=== PATIENT | male | born 1965 | race African-American/Black ===

== ENCOUNTER 2016-05-28 16:16 | Emergency (ER) | payer OTHER ==
[2015-11-18 14:27] VITALS: Ht 188 cm; Wt 99.8 kg
[~2016-05-28] VITALS: Ht 188 cm; Wt 99.8 kg
[2016-05-28 16:16] VITALS: BP 138/69; PULSE 77; RESP 15; TEMP 96.7; O2SAT 99
[~2016-05-28 16:16] MED LIST: ESCI10TA54 PO; FOLI-43 PO; GEMF600T3 PO; OMEG1CAP48 PO; PANCREAZE 16,81 EACH PO; SEVE800T8 PO; VIT1TABL44 PO
--- NOTE | 2016-05-28 16:16 | NUR ---
Placed in room 5 . Placed on electronic device monitor, blood pressure machine and pulse oximeter. To gown for exam. Side rails up. Report given to Luz PISANO.
--- NOTE | 2016-05-28 16:20 | NUR ---
pt. to ER by EMS AAOx4 for near syncope states that he was at the [employer] sitting on the chair an hour ago felt cold and sweaty nd dizzy, emt arrived and blood sugar was 87, denies SOB, Denies Chest pain, states he feels fine at this time doesn't think he needs to stay, on quality assurance monitor final, vitals stable
--- NOTE | 2016-05-28 16:43 | NUR ---
pt. communicates with MD and myself about refusing treatment, states he feels fine now and would like to go home, agrees to sign AMA
--- NOTE | 2016-05-28 16:43 | NUR ---
pt. refuses blood draw
--- NOTE | 2016-05-28 16:52 | NUR ---
Patient does not wish to proceed with medical care recommended by dr. cuello. Patient given information related to possible complications, up to and including , which could occur as a result of leaving hospital at this time. Patient verbalizes understanding of risks involved leaving against medical advice. Patient has signed AMA form.
== END 2016-05-28 16:52 | disposition left against medical advice (07) ==
LOC: SED 16:16
DX: R55 Syncope and collapse (principal); I10 Essential (primary) hypertension; E11.29 Type 2 diabetes mellitus with other diabetic kidney complication; N28.9 Disorder of kidney and ureter, unspecified
CPT/HCPCS: 99283

== ENCOUNTER 2017-05-19 17:12 | Inpatient (IN) | payer BC, OTHER ==
[~2017-05-19] VITALS: Ht 188 cm; Wt 89.8 kg
[2017-05-19 17:12] VITALS: BP_SYST 133
--- NOTE | 2017-05-19 17:15 | NUR ---
Pt report received from NORRIS Morrison. Pt c/o mid abdominal pain with N/V x 4 days. Pt actively vomiting upon arrival to ER bed 01. Dr. Baez made aware.
--- NOTE | 2017-05-19 17:15 | NUR ---
TRIAGED AND BROUGHT IMMEDIATELY BACK TO BED #1 VIA WHEELCHAIR. REPORT GIVEN TO JESUS
--- NOTE | 2017-05-19 17:35 | NUR ---
ER at bedside examining patient.
[2017-05-19] MEDS ORDERED: ONDANSETRON HCL 4 MG/2 ML VIAL IVP ONE (17:45)
--- NOTE | 2017-05-19 17:50 | NUR ---
# 20 gauge angiocath placed to LAC. Use of asceptic technique. Opsite placed over site. Blood return noted. Blood for lab drawn from site. Flushed with 10 cc of normal saline. No evidence of infiltration noted. Patient tolerated well.
[2017-05-19 18:25] LABS: BASOPHILS % (AUTO) 0.4 % (0.0-2.0); EOSINOPHILS # (AUTO) 0.1 K/uL (0.0-0.4); EOSINOPHILS % (AUTO) 0.8 % (0.0-4.0); HEMATOCRIT 50.8 % (36-54); HEMOGLOBIN 16.4 g/dL (14.0-18.0); LYMPHOCYTES # (AUTO) 1.8 K/uL (1.0-5.5); LYMPHOCYTES % (AUTO) 17.7 % (20.5-51.5); MEAN CORPUSCULAR HEMOGLOBIN 32 pg (27-31); MEAN CORPUSCULAR HGB CONC 32 % (32-36); MEAN CORPUSCULAR VOLUME 98 fL (79.0-98.0); MONOCYTES # (AUTO) 0.9 K/uL (0.0-1.0); MONOCYTES % (AUTO) 8.9 % (1.7-9.3); NEUTROPHILS # (AUTO) 7.4 K/uL (1.8-7.7); NEUTROPHILS % (AUTO) 72.2 % (40.0-70.0); PLATELET COUNT (AUTO) 393 K/uL (130-430); RED BLOOD CELL COUNT(AUTO) 5.16 MIL/uL (4.2-6.2); RED CELL DISTRIBUTION WIDTH 11.9 % (9.0-15.0); WHITE BLOOD COUNT (AUTO) 10.2 K/uL (4.8-10.8)
[2017-05-19 18:35] LABS: INR 1.1 (0.80-1.20); PROTHROMBIN TIME 10.9 SECS (9.5-12.5)
[2017-05-19 18:56] LABS: ANION GAP 11 (5-15); CALCIUM 12.2 mg/dL (8.4-11.0); CHLORIDE 96 mmol/L (98-107); GLUCOSE 153 mg/dL (70-99); POTASSIUM 3.4 mmol/L (3.5-5.1); SODIUM SERUM 137 mmol/L (136-145); UREA NITROGEN, BLOOD 23 mg/dL (8-21)
[2017-05-19 18:57] LABS: ALANINE AMINOTRANSFERASE 26 U/L (12-78); ALBUMIN 3.7 g/dL (3.4-4.8); AMYLASE 46 U/L (0-100); ASPARTATE AMINOTRANSFERASE 24 U/L (10-37); CREATININE 1.67 mg/dL (0.55-1.30); GFR AFRICAN AMERICAN 56 mL/min (>90); LIPASE 94 U/L (73-393); TOTAL BILIRUBIN 0.5 mg/dL (0.0-1.0)
[2017-05-19 19:03] LABS: ACETONE, SERUM TRACE (NEGATIVE)
[2017-05-19] MEDS ORDERED: MORPHINE 4 MG/ML INJ. SYRINGE IVP ONE (19:15)
[2017-05-19 20:05] VITALS: BP_SYST 159
--- NOTE | 2017-05-19 20:10 | NUR ---
Patient will be admitted to care of Dr. Cruz. Admitted to Tele unit. Will go to room 117B. Belongings list completed. Summary report printed. Bedside report given to receiving RN.
--- NOTE | 2017-05-19 20:20 | NUR ---
OPENING NOTE RECEIVED PT ENDORSEMENT FROM ED NURSE. PT CAME FROM HOME C/O ABD PAINX 1 WEEK, [facility] REPORTS PT HAS LOST +15LBS X 2 WEEKS. PT REPORTS NOT EATING WELL. PT IS AOX4. AMBULATORY. ED NURSE REPORTS ADMINISTERING ZOFRAN 4MG AND MORPHINE 4 MG X1 HR AGO. PT REPORTS NO PAIN RELIEF. PT REPORTS 10/[address] IBANEZ PAGED FOR PAIN MEDICATION ORDERS. BP AND HR ELEVATED. NO FEVER. O2 SAT 97% ON ROOM AIR. IV ON LEFT AC 20GAUGE. IV DRY AND INTACT. SAFETY MEASURES IN PLACE, BED WHEELS LOCKED, BED IN LOWEST POSITION, CALL LIGHT WITHIN REACH, NOTIFIED PT TO USE CALL LIGHT OR TO CALL FOR ASSISTANCE, PT VERBALIZED UNDERSTANDING. WILL CONTINUE TO MONITOR.
--- NOTE | 2017-05-19 20:32 | NUR ---
paged paged for Dr Cruz, dialed . s/w Vandana.
[2017-05-19] MEDS ORDERED: TEMAZEPAM 15 MG CAPSULE PO PRN (20:45)
[2017-05-19] MEDS ORDERED: cloNIDine HCL 0.1 MG TABLET PO PRN (20:45)
[2017-05-19] MEDS ORDERED: ACETAMINOPHEN 325 MG TABLET PO PRN (20:45)
[2017-05-19] MEDS ORDERED: DEXTROSE 50% JECT 50 ML DISP.SYRIN IVP PRN (20:45)
[2017-05-19] MEDS ORDERED: MAG-AL HYDROX/SIMETH 30 ML UDC PO PRN (20:45)
[2017-05-19] MEDS ORDERED: PANTOPRAZOLE GRANULES PACKET 40 MG GT SCH (21:00)
[2017-05-19] MEDS: MORPHINE 4 MG/ML INJ. SYRINGE IVP PRN (21:14)
--- NOTE | 2017-05-19 21:14 | NUR ---
RN ROUNDS PT IS AOX4. AT BEDSIDE. PT REPORTS 10/10 PAIN. PT'S IV PATENT AND DRY. MORPHINE IVP GIVEN ORDERED FOR PAIN. SCHEDULED MEDICATIONS ADMINISTERED ORDERED, PT TOLERATED WELL. WILL MONITOR MEDICATION EFFECTIVENESS. PT'S BS CHECKED AT THIS TIME, BS 137, NO COVERAGE NEEDED A THIS TIME. SAFETY MEASURES IN PLACE BED WHEELS LOCKED, BED IN LOWEST POSITION, CALL LIGHT WITHIN REACH, SIDE RAILS UP X 2. BEDSIDE TABLE WITHIN REACH. NO FURTHER NEEDS AT THIS TIME. WILL CONTINUE TO MONITOR PT.
[2017-05-19] MEDS: METOCLOPRAMIDE HCL 10 MG/2 ML VIAL IVP PRN (21:20)
[2017-05-19] MEDS: KCL 20 mEq in 0.45% NS 1000 mL 1,000 ML IV SCH (21:20)
--- NOTE | 2017-05-19 21:21 | NUR ---
Consult Called for Krista Houston MD Reason for consultation: Pancreatic Mass Person who was notified: Hellen Ordered by Dr. Cruz
[2017-05-19] MEDS: PANTOPRAZOLE SODIUM 40 MG/VIAL (PROTONIX) IVP SCH (21:23)
[2017-05-19] MEDS: GEMFIBROZIL 600 MG TABLET (LOPID) PO SCH (21:23)
[2017-05-19] MEDS: OMEGA-3/DHA/EPA/FISH OIL 1 GM CAPSULE PO SCH (21:24)
[2017-05-19] MEDS: HYDROcodone/ACETAMIN 10-325 MG TAB PO PRN (22:15)
--- NOTE | 2017-05-19 22:15 | NUR ---
RN ROUNDS PT IS AOX4. PT IS IN POSITION OF COMFORT IN BED. IS AT BEDSIDE. PT'S IV PATENT AND DRY. PT C/O PAIN, 09/04, NORCO PO ADMINISTERED ORDERED FOR PAIN, PT TOLERATED WELL, WILL MONITOR MEDICATIONS EFFECTIVENESS. SAFETY MEASURES IN PLACE BED WHEELS LOCKED, BED IN LOWEST POSITION, CALL LIGHT WITHIN REACH, SIDE RAILS UP X 2. BEDSIDE TABLE WITHIN REACH. NO FURTHER NEEDS AT THIS TIME. WILL CONTINUE TO MONITOR PT.
--- NOTE | 2017-05-19 23:11 | NUR ---
RN ROUNDS Patient resting quietly in bed, abd pain tolerable at this time. Ice packs given, patient states he feels warm. No temperature noted. IVF infusing. Safety measures in place, bed alarm on, call light within reach, will monitor.
[2017-05-20 00:07] VITALS: BP_SYST 131
--- NOTE | 2017-05-20 00:29 | NUR ---
RN ROUNDS PT RESTING WITH EYES CLOSED. RESPIRATIONS EVEN AND UNLABORED. SAFETY MEASURES IN PLACE BED WHEELS LOCKED, BED IN LOWEST POSITION, CALL LIGHT WITHIN REACH, SIDE RAILS UP X 2. BEDSIDE TABLE WITHIN REACH. NO FURTHER NEEDS AT THIS TIME. WILL CONTINUE TO MONITOR PT.
[2017-05-20] MEDS: KCL 20 mEq in 0.45% NS 1000 mL 1,000 ML IV SCH (02:21)
[2017-05-20] MEDS: ONDANSETRON HCL 4 MG/2 ML VIAL IVP PRN ×2 (02:31→08:36)
[2017-05-20] MEDS: MORPHINE 4 MG/ML INJ. SYRINGE IVP PRN ×5 (02:31→18:22)
--- NOTE | 2017-05-20 02:31 | NUR ---
RN ROUNDS PT WAS RESTING WITH EYES CLOSED. RESPIRATIONS EVEN AND UNLABORED. NO S/S OF SOB/DISTRESS NOTED. IV PATENT AND DRY. IVF'S CHANGED, IVF INFUSING WELL. PT TOLERATING WELL. PT REPORTS 8/10 PAIN. MORPHINE IVP ADMINISTERED ORDERED FOR PAIN. PT TOLERATED WELL. WILL ASSESS MEDICATION EFFECTIVENESS. SAFETY MEASURES IN PLACE BED WHEELS LOCKED, BED IN LOWEST POSITION, CALL LIGHT WITHIN REACH, SIDE RAILS UP X 2. BEDSIDE TABLE WITHIN REACH. NO FURTHER NEEDS AT THIS TIME. WILL CONTINUE TO MONITOR PT.
[2017-05-20] MEDS: HYDROcodone/ACETAMIN 10-325 MG TAB PO PRN ×4 (03:11→21:37)
--- NOTE | 2017-05-20 03:11 | NUR ---
RN ROUNDS PT RESTING WITH EYES OPEN. RESPIRATIONS EVEN AND UNLABORED. PT REQUESTED ICE PACKS, AND ICE CHIPS. ICE PACKS AND ICE CHIPS WERE PROVIDED REQUESTED. PT REPORTING 6/10 PAIN. NORCO PO ADMINISTERED ORDERED. PT TOLERATED WELL. WILL ASSESS MEDICATION EFFECTIVENESS.IV PATENT AND DRY. IVF INFUSING WELL. SAFETY MEASURES IN PLACE BED WHEELS LOCKED, BED IN LOWEST POSITION, CALL LIGHT WITHIN REACH, SIDE RAILS UP X 2. BEDSIDE TABLE WITHIN REACH. NO FURTHER NEEDS AT THIS TIME. WILL CONTINUE TO MONITOR PT.
--- NOTE | 2017-05-20 04:11 | NUR ---
RN ROUNDS PT RESTING WITH EYES OPEN. RESPIRATIONS EVEN AND UNLABORED. NO SOB/DISTRESS NOTED AT THIS TIME. REASSESSED PT'S PAIN. PT REPORTS 08/04. MEDICATION EFFECTIVE. WILL CONTINUE TO MONITOR. SAFETY MEASURES IN PLACE BED WHEELS LOCKED, BED IN LOWEST POSITION, CALL LIGHT WITHIN REACH, SIDE RAILS UP X 2. BEDSIDE TABLE WITHIN REACH. NO FURTHER NEEDS AT THIS TIME. WILL CONTINUE TO MONITOR PT.
[2017-05-20] MEDS: METOCLOPRAMIDE HCL 10 MG/2 ML VIAL IVP PRN ×2 (06:16→12:17)
--- NOTE | 2017-05-20 06:22 | NUR ---
CLOSING NOTE WILL ENDORSE PT TO HOME THERAPY CLINICIAN. PT RESTING WITH EYES OPEN. RESPIRATIONS EVEN AND UNLABORED. NO SOB/ DISTRESS NOTED AT THIS TIME. MORPHINE AND REGLAN GIVEN IVP ORDERED. PT TOLERATED WELL. PT C/O OF 7/10 PAIN. REASSESSED PAIN PT REPORTING 5/10 PAIN. MEDICATION EFFECTIVE. BLOOD SUGAR CHECKED, BS 419. INSULIN COVERAGE ADMINISTERED [address] IBANEZ PER PROTOCOL. DR. IBANEZ NOTIFIED OF BS 419, NO ORDERS AT THIS TIME. WILL CONTINUE TO MONITOR PT. NO FURTHER NEEDS AT THIS TIME. SAFETY MEASURES IN PLACE BED WHEELS LOCKED, BED IN LOWEST POSITION, CALL LIGHT WITHIN REACH, SIDE RAILS UP X 2. BEDSIDE TABLE WITHIN REACH. NO FURTHER NEEDS AT THIS TIME. WILL CONTINUE TO MONITOR PT.
[2017-05-20] MEDS: INSULIN REGULAR, HUMAN 100 UNITS/ML, 10 ML VIAL (novoLIN R) SUBCUT PRN ×3 (06:35→17:12)
[2017-05-20 06:39] LABS: BASOPHILS % (AUTO) 0.6 % (0.0-2.0); EOSINOPHILS % (AUTO) 0.5 % (0.0-4.0); LYMPHOCYTES # (AUTO) 1.1 K/uL (1.0-5.5); LYMPHOCYTES % (AUTO) 15.5 % (20.5-51.5); MEAN CORPUSCULAR HEMOGLOBIN 33 pg (27-31); MEAN CORPUSCULAR HGB CONC 33 % (32-36); MEAN CORPUSCULAR VOLUME 99 fL (79.0-98.0); MONOCYTES # (AUTO) 0.8 K/uL (0.0-1.0); MONOCYTES % (AUTO) 11.2 % (1.7-9.3); NEUTROPHILS # (AUTO) 5.4 K/uL (1.8-7.7); NEUTROPHILS % (AUTO) 72.2 % (40.0-70.0); PLATELET COUNT (AUTO) 203 K/uL (130-430); RED BLOOD CELL COUNT(AUTO) 3.84 MIL/uL (4.2-6.2); RED CELL DISTRIBUTION WIDTH 11.9 % (9.0-15.0); WHITE BLOOD COUNT (AUTO) 7.3 K/uL (4.8-10.8)
[2017-05-20 07:24] LABS: ALBUMIN 2.5 g/dL (3.4-4.8); CALCIUM 9.5 mg/dL (8.4-11.0); CREATININE 1.97 mg/dL (0.55-1.30); PHOSPHORUS 4.2 mg/dL (2.7-4.5); POTASSIUM 4.5 mmol/L (3.5-5.1); TOTAL BILIRUBIN 0.5 mg/dL (0.0-1.0)
[2017-05-20 07:35] LABS: HEMOGLOBIN 12.6 g/dL (14.0-18.0)
[2017-05-20 08:20] VITALS: BP_SYST 143
[2017-05-20] MEDS: SEVELAMER HCL 800 MG TABLET PO SCH ×3 (08:20→17:08)
[2017-05-20] MEDS: GEMFIBROZIL 600 MG TABLET (LOPID) PO SCH ×2 (08:20→20:55)
[2017-05-20] MEDS: CITALOPRAM HYDROBROMIDE 20 MG TABLET PO SCH (08:20)
[2017-05-20] MEDS: NEPHROVITE, (FOLIC ACID/VITAMIN B COMP W-C 1 TAB) PO SCH (08:20)
[2017-05-20] MEDS: OMEGA-3/DHA/EPA/FISH OIL 1 GM CAPSULE PO SCH ×2 (08:20→20:54)
[2017-05-20] MEDS: PANTOPRAZOLE SODIUM 40 MG/VIAL (PROTONIX) IVP SCH ×2 (08:20→20:54)
[2017-05-20] MEDS: FOLIC ACID 1 MG TABLET PO SCH (08:20)
--- NOTE | 2017-05-20 08:20 | NUR ---
OPENING NOTE LATE ENTRY DUE TO PT CARE: REPORT IS RECEIVED FROM OIL RAG WASHER NURSE AND CARE IS ENDORSED TO MYSELF. PT IS RECEIVED AWAKE, ALERT, AND ORIENTED X4. RECHECKED FINGER STICK BECAUSE OIL RAG WASHER NURSE INSULIN FOR BLOOD SUGAR OF 419 AND BLOOD SUGAR RETURNED AT 394. MORNING MEDICATIONS WERE GIVEN AND TOLERATED WELL. GAVE PRN NORCO FOR PAIN OF 6 OUT OF 10 IN ABDOMINAL AREA AND PRN ZOFRAN FOR NAUSEA. WHITE BOARD UPDATED WITH CURRENT INFORMATION WELL PLAN FOR TODAY. BED IS AT LOWEST POSITION, CALL LIGHT WITHIN REACH, TWO SIDE RAILS UP, BED ALARM IS ON. WILL CONTINUE TO MONITOR.
[2017-05-20] MEDS: LIPASE/PROTEASE/AMYLASE 1 CAP PO SCH ×3 (08:36→17:09)
[2017-05-20] MEDS: [UNRECOGNIZED DRUG - OTHER] PO SCH ×3 (09:00→20:54)
[2017-05-20] MEDS: PROTEASE PO SCH ×3 (09:00→20:54)
[2017-05-20] MEDS: LIPASE PO SCH ×3 (09:00→20:54)
[2017-05-20] MEDS: AMYLASE PO SCH ×3 (09:00→20:54)
--- NOTE | 2017-05-20 10:02 | NUR ---
ROUNDS PT IS SLEEPING BUT IS EASILY AWAKEN. NO SIGNS OR SYMPTOMS OF DISTRESS OR SOB NOTED. PT STATES PAIN IS INCREASING TO 8 OUT OF 10 WILL GIVEN PRN PAIN MEDICATION. CURRENT NEEDS ARE MET. BED IS AT LOWEST POSITION, CALL LIGHT WITHIN REACH, TWO SIDE RAILS UP, BED ALARM IS ON. WILL CONTINUE TO MONITOR.
--- NOTE | 2017-05-20 10:20 | NUR ---
GAVE NPH 10 UNITS ORDERED
[2017-05-20] MEDS: NACL 0.9% 1,000 ML IV SCH ×3 (10:27→23:20)
[2017-05-20] MEDS: INSULIN NPH 100 UNITS/ML 10 ML VIAL SUBCUT SCH (10:30)
--- NOTE | 2017-05-20 12:10 | NUR ---
ROUNDS PT IS AWAKE AND ALERT. NO SIGNS OR SYMPTOMS OF DISTRESS OR SOB NOTED. GAVE 10 UNIT OF REGULAR PER SLIDING SCALE. GAVE PO MEDICATIONS AND PT TOLERATED IT WELL. CURRENT NEEDS ARE MET. BED IS AT LOWEST POSITION, CALL LIGHT WITHIN REACH, TWO SIDE RAILS UP, BED ALARM IS ON. WILL CONTINUE TO MONITOR.
--- NOTE | 2017-05-20 12:17 | NUR ---
GAVE PRN REGLAN FOR NAUSEA
--- NOTE | 2017-05-20 13:02 | NUR ---
DR. MARCELLE HARRIS
[2017-05-20 13:36] VITALS: BP_SYST 114
--- NOTE | 2017-05-20 14:26 | NUR ---
Dietitian Recommendations *Recommend continuing clear liquid no red per MD. *Recommend advance diet when medically appropriate. ([facility] Fat) Please see Nutritional Assessment for details. EDITH, RD
--- NOTE | 2017-05-20 14:55 | NUR ---
ROUNDS PT IS AWAKE AND ALERT. NO SIGNS OR SYMPTOMS OF DISTRESS OR SOB NOTED. GAVE PRN MORPHINE 4MG IVP FOR PAIN IN ABDOMEN AREA OF 7 OUT OF 10. ADVISED OF INCREASE RISK FOR FALLS AND THE NEED TO USE CALL LIGHT IF HE WANTS TO GET UP. CURRENT NEEDS ARE MET. BED IS AT LOWEST POSITION, CALL LIGHT WITHIN REACH, TWO SIDE RAILS UP, BED ALARM IS ON. WILL CONTINUE TO MONITOR.
--- NOTE | 2017-05-20 16:28 | NUR ---
ROUNDS PT IS AWAKE AND ALERT. NO SIGNS OR SYMPTOMS OF DISTRESS OR SOB NOTED. PT STATES PAIN LEVEL IS CURRENTLY TOLERABLE AT A 3 OUT OF 10. GAVE 10 UNIT OF NPH ORDERED. CURRENT NEEDS ARE MET. BED IS AT LOWEST POSITION, CALL LIGHT WITHIN REACH, TWO SIDE RAILS UP, BED ALARM IS ON. WILL CONTINUE TO MONITOR.
[2017-05-20 16:30] VITALS: BP_SYST 111
[2017-05-20] MEDS ORDERED: INSULIN NPH 100 UNITS/ML 10 ML VIAL SUBCUT SCH (17:00)
--- NOTE | 2017-05-20 18:25 | NUR ---
CLOSING NOTE PT IS SLEEPING BUT IS EASILY AWAKEN. NO SIGNS OR SYMPTOMS OF DISTRESS OR SOB NOTED. GAVE PRN MORPHINE FOR PAIN OF 8 OUT OF 10 IN THE ABDOMEN AREA. CURRENT NEEDS ARE MET. BED IS AT LOWEST POSITION, CALL LIGHT WITHIN REACH, TWO SIDE RAILS UP, BED ALARM IS ON. WILL CONTINUE TO MONITOR. Addendum: 05/20/17 at 1830 by Sonia Dunlap RN WILL CONTINUE TO MONITOR UNTIL CARE AND REPORT IS GIVEN TO CUSTOMER CARE AGENT NURSE.
[2017-05-20 19:05] VITALS: BP_SYST 130
--- NOTE | 2017-05-20 19:05 | NUR ---
OPENING NOTES Received SBAR report from [facility] nurse Sonia. Not in any apparent distress 130/72 77 18 96% room air 97.4 and currently complains of 7/10 abdominal pain. Patient is awake/alert/oriented with his family bedside. Noted IV to Left AC 20G running NS @ 150ml/hr. Verified patency with good blood return/flush. SCD's not applied, re-applied and discussed benefits of their function. Introduced myself, updated whiteboard and oriented patient to room. Bed to lowest position, bed alarm activated, and 2 upper side rails bilat raised. Will continue to monitor patient.
--- NOTE | 2017-05-20 21:02 | NUR ---
LOW BLOOD GLUCOSE Patient's blood glucose levels 67; patient asymptomatic; gave apple juice. 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 Cruz to advise Will continue to monitor patient.
--- NOTE | 2017-05-20 21:37 | NUR ---
PAIN MEDICATION Patient complains of 6/10 abdominal pain. Administered [place] 10mg/325mg as ordered by physician for moderate pain. Will continue to monitor patient.
--- NOTE | 2017-05-20 21:49 | NUR ---
PAGED DR IBANEZ FOR ORDERS SPOKE WITH SURYA
--- NOTE | 2017-05-20 22:05 | NUR ---
s/w Dr. Cruz, informed him of patients blood glucose levels/trend. He would like to DC NPH insulin administration during the evening. No other changes to medication regimen. Order noted/carried out.
--- NOTE | 2017-05-20 23:36 | NUR ---
ROUNDS Patient is currently sleeping, but easily arousable to light stimulation. Equal rise and fall of chest with non-labored respirations of 16/min. Call light within his reach, bed to lowest position, bed alarm activated, 2 upper side rails up bilateral. Will continue to monitor patient.
[2017-05-21 00:11] VITALS: BP_SYST 135; BP_SYST 155
[2017-05-21] MEDS: MORPHINE 4 MG/ML INJ. SYRINGE IVP PRN ×3 (01:56→23:58)
--- NOTE | 2017-05-21 02:20 | NUR ---
ROUNDS Patient is currently awake/alert/oriented, watching television. No acute distress noted, and respirations are non-labored; 16/min. Call light within his reach, bed to lowest position, bed alarm activated, 2 upper side rails up bilateral. Will continue to monitor patient.
--- NOTE | 2017-05-21 04:31 | NUR ---
ROUNDS Patient is currently sleeping, easily arousable, skin is warm to touch. Equal rise and fall of chest, and respirations are non-labored. Will continue to monitor patient.
[2017-05-21] MEDS: NACL 0.9% 1,000 ML IV SCH ×3 (06:06→20:32)
[2017-05-21] MEDS: HYDROcodone/ACETAMIN 10-325 MG TAB PO PRN ×3 (06:25→18:55)
--- NOTE | 2017-05-21 06:25 | NUR ---
PAIN MEDICATION Patient complains of 6/10 abdominal pain. Administered [place] 10mg/325mg as ordered by physician for moderate pain. Will continue to monitor patient.
[2017-05-21] MEDS: INSULIN REGULAR, HUMAN 100 UNITS/ML, 10 ML VIAL (novoLIN R) SUBCUT PRN ×2 (06:30→13:25)
[2017-05-21] MEDS: INSULIN NPH 100 UNITS/ML 10 ML VIAL SUBCUT SCH (06:30)
--- NOTE | 2017-05-21 07:30 | NUR ---
CLOSING NOTE Gave bedside report to dayshift NORRIS Mcdaniel. Patient is awake/alert/oriented and eating breakfast. Introduced dayshift nurse. All needs/expectations/interventions were met by nightshift nurse. Transfer of care successful.
[2017-05-21 07:31] LABS: BASOPHILS % (AUTO) 0.6 % (0.0-2.0); EOSINOPHILS # (AUTO) 0.2 K/uL (0.0-0.4); EOSINOPHILS % (AUTO) 3.1 % (0.0-4.0); HEMATOCRIT 33.5 % (36-54); HEMOGLOBIN 11.5 g/dL (14.0-18.0); LYMPHOCYTES # (AUTO) 1.7 K/uL (1.0-5.5); LYMPHOCYTES % (AUTO) 35.3 % (20.5-51.5); MEAN CORPUSCULAR HEMOGLOBIN 34 pg (27-31); MEAN CORPUSCULAR HGB CONC 34 % (32-36); MEAN CORPUSCULAR VOLUME 98 fL (79.0-98.0); MONOCYTES # (AUTO) 0.6 K/uL (0.0-1.0); MONOCYTES % (AUTO) 11.6 % (1.7-9.3); NEUTROPHILS # (AUTO) 2.3 K/uL (1.8-7.7); NEUTROPHILS % (AUTO) 49.4 % (40.0-70.0); PLATELET COUNT (AUTO) 177 K/uL (130-430); RED BLOOD CELL COUNT(AUTO) 3.42 MIL/uL (4.2-6.2); WHITE BLOOD COUNT (AUTO) 4.8 K/uL (4.8-10.8)
[2017-05-21 07:42] LABS: ALBUMIN 2.4 g/dL (3.4-4.8); CALCIUM 8.5 mg/dL (8.4-11.0); CREATININE 1.44 mg/dL (0.55-1.30); POTASSIUM 3.5 mmol/L (3.5-5.1); TOTAL BILIRUBIN 0.3 mg/dL (0.0-1.0)
--- NOTE | 2017-05-21 07:43 | NUR ---
PATIENT A/OX4. STATES THAT ABD PAIN AND NAUSEA IS UNDER CONTROL AT THIS TIME. HE IS EATING BREAKFAST AT THIS TIME. POC IS UPDATED WITH PATIENT. BED IS AT LOWEST POSITION, INSTRUCTED PATIENT TO USE CALL LIGHT, WHICH IS WITHIN REACH, TWO SIDE RAILS UP, BED ALARM IS ON. WILL CONTINUE TO MONITOR.
[2017-05-21 07:56] LABS: INR 1.1 (0.80-1.20)
[2017-05-21 08:00] VITALS: BP_SYST 119
[2017-05-21] MEDS: SEVELAMER HCL 800 MG TABLET PO SCH ×3 (08:09→18:49)
[2017-05-21] MEDS: NEPHROVITE, (FOLIC ACID/VITAMIN B COMP W-C 1 TAB) PO SCH (08:09)
[2017-05-21] MEDS: CITALOPRAM HYDROBROMIDE 20 MG TABLET PO SCH (08:09)
[2017-05-21] MEDS: FOLIC ACID 1 MG TABLET PO SCH (08:09)
[2017-05-21] MEDS: PANTOPRAZOLE SODIUM 40 MG/VIAL (PROTONIX) IVP SCH ×2 (08:09→20:33)
[2017-05-21] MEDS: LIPASE/PROTEASE/AMYLASE 1 CAP PO SCH ×3 (08:09→18:49)
[2017-05-21] MEDS: GEMFIBROZIL 600 MG TABLET (LOPID) PO SCH ×2 (08:10→20:34)
[2017-05-21] MEDS: OMEGA-3/DHA/EPA/FISH OIL 1 GM CAPSULE PO SCH ×2 (08:12→20:33)
[2017-05-21] MEDS: LIPASE PO SCH (09:00)
[2017-05-21] MEDS: [UNRECOGNIZED DRUG - OTHER] PO SCH (09:00)
[2017-05-21] MEDS: PROTEASE PO SCH (09:00)
[2017-05-21] MEDS: AMYLASE PO SCH (09:00)
--- NOTE | 2017-05-21 10:00 | NUR ---
PATIENT IS RESTING, NO SIGNS OF DISTRESS NOTED.
[2017-05-21 11:23] VITALS: BP_SYST 112
[2017-05-21 15:29] VITALS: BP_SYST 121
[2017-05-21] MEDS ORDERED: LIPASE/PROTEASE/AMYLASE 1 CAP PO SCH (18:00)
[2017-05-21 20:00] VITALS: BP_SYST 133
--- NOTE | 2017-05-21 20:02 | NUR ---
INITIAL NOTES RECEIVED PATIENT ON BED AWAKE AND ALERT WITH FAMILY ON THE BEDSIDE BREATHING EVEN AND UNLABORED NO SOB NOTED. MAINTAINED ON POSITION OF COMFORT, MAINTAINED SAFETY PRECAUTION WITH CURRENT PAIN LEVEL OF 5/10 AND IS TOLERABLE ACCORDING TO THE PATIENT. EXPLAINED THE PLAN OF CARE AND VERBALIZED UNDERSTANDING. WILL CONTINUE TO MONITOR CALL LIGHT WITHIN REACH.
--- NOTE | 2017-05-21 22:00 | NUR ---
RN ROUNDS PATIENT ON BED AWAKE AND RESTING WATCHING TV BREATHING EVEN AND UNLABORED, MAINTAINED ON POSITION OF COMFORT, NO PAIN NOTED, MAINTAINED SAFETY PRECAUTIONS. WILL CONTINUE TO MONITOR CALL LIGHT WITHIN REACH.
[2017-05-21 23:18] VITALS: BP_SYST 128
--- NOTE | 2017-05-21 23:49 | NUR ---
RN ROUNDS PATIENT ON BED SLEEPING AND RESTING WATCHING TV BREATHING EVEN AND UNLABORED, MAINTAINED ON POSITION OF COMFORT, NO PAIN NOTED, MAINTAINED SAFETY PRECAUTIONS. WILL CONTINUE TO MONITOR CALL LIGHT WITHIN REACH
--- NOTE | 2017-05-22 01:45 | NUR ---
RN ROUNDS PATIENT ON BED AWAKE AND RESTING WATCHING TV BREATHING EVEN AND UNLABORED, MAINTAINED ON POSITION OF COMFORT, PATIENT WITH ABDOMINAL PAIN WITH PAIN LEVEL OF 3/10 TOLERABLE, MAINTAINED SAFETY PRECAUTIONS. WILL CONTINUE TO MONITOR CALL LIGHT WITHIN REACH.
[2017-05-22] MEDS: NACL 0.9% 1,000 ML IV SCH (06:00)
[2017-05-22] MEDS: INSULIN NPH 100 UNITS/ML 10 ML VIAL SUBCUT SCH (06:03)
--- NOTE | 2017-05-22 06:13 | NUR ---
RN ROUNDS PATIENT ON BED AWAKE AND ALERT, BREATHING EVEN AND UNLABORED NO SOB NOTED, NO PAIN NOTED. MAINTAINED POSITION OF COMFORT, MAINTAINED SAFETY PRECAUTION. WITH IV INFUSING WELL, CLEAN DRY INTACT. WITH BLOOD SUGAR OF 145, NO REGULAR INSULIN COVERAGE GIVEN. ALL DUE MEDICATION GIVEN AND TOLERATED WELL. WILL CONTINUE TO MONITOR CALL LIGHT WITHIN REACH. Addendum: 05/22/17 at 0643 by Елена Kamara RN BS WAS 140MG/DL INSTEAD OF 145MG/DL
--- NOTE | 2017-05-22 06:57 | NUR ---
CLOSING NOTES PATIENT ON BED AWAKE AND RESTING NO SOB NOTED MAINTAINED POSITION OF COMFORT, MAINTAINED SAFETY PRECAUTION, WILL GIVE REPORT TO AM NURSE, WILL CONTINUE TO MONITOR CALL LIGHT WITHIN REACH.
--- NOTE | 2017-05-22 07:50 | NUR ---
OPENING NOTE RECEIVED REPORT FROM FUR GRADER RN. PATIENT SITTING UP IN BED IN STABLE CONDITION. NO S/S OF DISTRESS OR SOB NOTED. NO COMPLAINTS OF PAIN. PATIENT ACKNOWLEDGES SHIFT CHANGE. IV SITE INTACT WITH NO REDNESS OR SIGNS OF INFILTRATION. BED ALARM ON, BED IN LOWEST POSITION, CALL LIGHT IN REACH. WILL CONTINUE TO MONITOR.
[2017-05-22 08:00] VITALS: BP_SYST 146
[2017-05-22 08:20] LABS: BASOPHILS % (AUTO) 0.9 % (0.0-2.0); EOSINOPHILS # (AUTO) 0.1 K/uL (0.0-0.4); EOSINOPHILS % (AUTO) 3.2 % (0.0-4.0); HEMATOCRIT 33.3 % (36-54); LYMPHOCYTES # (AUTO) 1.7 K/uL (1.0-5.5); LYMPHOCYTES % (AUTO) 42.2 % (20.5-51.5); MEAN CORPUSCULAR HEMOGLOBIN 33 pg (27-31); MEAN CORPUSCULAR HGB CONC 33 % (32-36); MEAN CORPUSCULAR VOLUME 100 fL (79.0-98.0); MONOCYTES # (AUTO) 0.4 K/uL (0.0-1.0); MONOCYTES % (AUTO) 10.2 % (1.7-9.3); NEUTROPHILS # (AUTO) 1.6 K/uL (1.8-7.7); NEUTROPHILS % (AUTO) 43.5 % (40.0-70.0); PLATELET COUNT (AUTO) 185 K/uL (130-430); RED BLOOD CELL COUNT(AUTO) 3.35 MIL/uL (4.2-6.2)
[2017-05-22 08:53] LABS: ALBUMIN 2.2 g/dL (3.4-4.8); CALCIUM 8.3 mg/dL (8.4-11.0); CREATININE 1.11 mg/dL (0.55-1.30); POTASSIUM 3.9 mmol/L (3.5-5.1); TOTAL BILIRUBIN 0.2 mg/dL (0.0-1.0)
[2017-05-22] MEDS: FOLIC ACID 1 MG TABLET PO SCH (09:02)
[2017-05-22] MEDS: SEVELAMER HCL 800 MG TABLET PO SCH ×2 (09:02→13:40)
[2017-05-22] MEDS: OMEGA-3/DHA/EPA/FISH OIL 1 GM CAPSULE PO SCH (09:02)
[2017-05-22] MEDS: NEPHROVITE, (FOLIC ACID/VITAMIN B COMP W-C 1 TAB) PO SCH (09:02)
[2017-05-22] MEDS: GEMFIBROZIL 600 MG TABLET (LOPID) PO SCH (09:03)
[2017-05-22] MEDS: CITALOPRAM HYDROBROMIDE 20 MG TABLET PO SCH (09:03)
[2017-05-22] MEDS: HYDROcodone/ACETAMIN 10-325 MG TAB PO PRN (09:04)
[2017-05-22] MEDS: PANTOPRAZOLE SODIUM 40 MG/VIAL (PROTONIX) IVP SCH (09:06)
[2017-05-22 09:23] LABS: WHITE BLOOD COUNT (AUTO) 3.8 K/uL (4.8-10.8)
[2017-05-22] MEDS: MORPHINE 4 MG/ML INJ. SYRINGE IVP PRN ×2 (10:23→14:50)
[2017-05-22] MEDS: LIPASE/PROTEASE/AMYLASE 1 CAP PO SCH ×2 (10:23→13:40)
[2017-05-22 11:26] VITALS: BP_SYST 124
--- NOTE | 2017-05-22 11:38 | NUR ---
DR PAYTON PER DR PAYTON, PATIENT ABLE TO GO HOME. AWAITING DISCHARGE FROM DR IBANEZ
--- NOTE | 2017-05-22 14:27 | NUR ---
PAIN PATIENT COMPLAINING OF UPPER ABDOMINAL PAIN. WILL ADMINISTER PRN PAIN MEDICATION ORDERED.
[2017-05-22 15:06] VITALS: BP_SYST 146
[2017-05-22 16:18] VITALS: BP_SYST 146
--- NOTE | 2017-05-22 17:30 | NUR ---
D/C Patient Patient given medication reconciliation form and D/C instructions. Exit Care provided. Patient verbalized understanding. MD discussed with patient the results and treatment provided. Ambulatory with steady gait for discharge to home. Patient in stable condition, ID band removed. IV catheter removed, intact and dressing applied, no active bleeding. Rx given. Patient educated on pain management. All belongings sent with patient.
== END 2017-05-22 17:35 | disposition home or self-care (01) | DRG 438 ==
LOC: SED 17:12 → STU 19:27 → SMU 05-20 16:32
PROVIDERS: ADMIT Internal Medicine; ATTEND Internal Medicine
DX: K85.90 Acute pancreatitis without necrosis or infection, unspecified (principal); N17.0 Acute kidney failure with tubular necrosis; E43 Unspecified severe protein-calorie malnutrition; E11.9 Type 2 diabetes mellitus without complications; E78.1 Pure hyperglyceridemia; I10 Essential (primary) hypertension; E78.5 Hyperlipidemia, unspecified; I12.9 Hypertensive chronic kidney disease with stage 1 through stage 4 chronic kidney disease, or unspecified chronic kidney disease; E11.22 Type 2 diabetes mellitus with diabetic chronic kidney disease; N18.9 Chronic kidney disease, unspecified; Z79.899 Other long term (current) drug therapy; Z68.25 Body mass index [BMI] 25.0-25.9, adult
CPT/HCPCS: 36415; 80053; 80061; 82009-TC; 82150-TC; 82962; 83690-TC; 84100-TC; 85025; 85610-TC; 85730-TC; 86301; 96374; 96375; 99285; C9113; J1815; J2270; J2405; J2765; J3480; J7030

== ENCOUNTER 2018-08-25 08:28 | Emergency (ER) | payer SELFPAY ==
[~2018-08-25 08:28] MED LIST changes: -GEMF600T3 PO; +GEMF600T5 PO
--- NOTE | 2018-08-25 08:28 | NUR ---
CALLED PT TO IMMEDIATELY COME BACK TO BED #7, SPOKE WITH AND PATIENT, PATIENT STATES HE FEELS BETTER AFTER DRINKING A SODA AND HAVING SUGAR. PT STATES HIS SUGAR WAS 150 AND HE TOOK 15 U OF SHORT ACTING INSULIN, INSTEAD OF LONG ACTING INSULIN. PT STATES HE UNDERSTANDS WHAT HE DID AND THAT HIS SUGAR LEVELS WILL CONTINUE TO DROP. STATES PT IS ACTING NORMALLY, STATES PT WILL CHECK SUGAR AT HOME AND MONITOR. ENCOURAGED PT TO CHECK IN, AND PATIENT REFUSE AND WILL BE LEAVING ER.
== END 2018-08-25 15:30 | disposition left against medical advice (07) ==
LOC: SED 08:28
DX: T38.3X5A Adverse effect of insulin and oral hypoglycemic [antidiabetic] drugs, initial encounter (principal); Z53.21 Procedure and treatment not carried out due to patient leaving prior to being seen by health care provider; Y92.89 Other specified places as the place of occurrence of the external cause

== ENCOUNTER 2022-06-10 23:52 | Emergency (ER) | payer SELFPAY ==
[~2022-06-10] VITALS: Ht 188 cm; Wt 97.5 kg
[~2022-06-10 23:52] MED LIST changes: +ESCI-6 PO; -ESCI10TA54 PO; -GEMF600T5 PO; +GEMF600T89 PO
[2022-06-11 00:40] VITALS: BP_SYST 247
== END 2022-06-11 01:18 | disposition left against medical advice (07) ==
LOC: SED 23:52
DX: Z02.89 Encounter for other administrative examinations (principal); E11.65 Type 2 diabetes mellitus with hyperglycemia; I10 Essential (primary) hypertension; Z79.899 Other long term (current) drug therapy
CPT/HCPCS: 99283

== ENCOUNTER 2023-03-27 07:32 | Inpatient (IN) | payer BC ==
[~2023-03-27] VITALS: Ht 182.9 cm; Wt 86.2 kg
[2023-03-27 07:32] VITALS: BP_SYST 235; PULSE 83; RESP 17; TEMP 98.2; O2SAT 99
[2023-03-27] MEDS ORDERED: NACL 0.9% 1,000 ML IV ONE (07:45)
[2023-03-27] MEDS ORDERED: ASPIRIN 81 MG TAB.CHEW PO ONE (07:45)
[2023-03-27] MEDS ORDERED: NITROGLYCERIN 0.4 MG TAB.SUBL SL ONE (08:00)
[2023-03-27 08:28] LABS: BASOPHILS % (AUTO) 0.4 % (0.0-2.0); EOSINOPHILS # (AUTO) 0.1 K/uL (0.0-0.4); EOSINOPHILS % (AUTO) 2.1 % (0.0-4.0); HEMOGLOBIN 14.4 g/dL (14.0-18.0); LYMPHOCYTES # (AUTO) 0.8 K/uL (1.0-5.5); LYMPHOCYTES % (AUTO) 12.7 % (20.5-51.5); MEAN CORPUSCULAR HEMOGLOBIN 33 pg (27-31); MEAN CORPUSCULAR HGB CONC 34 % (32-36); MEAN CORPUSCULAR VOLUME 97 fL (79.0-98.0); MONOCYTES # (AUTO) 0.3 K/uL (0.0-1.0); MONOCYTES % (AUTO) 5.4 % (1.7-9.3); NEUTROPHILS # (AUTO) 4.9 K/uL (1.8-7.7); NEUTROPHILS % (AUTO) 79.4 % (40.0-70.0); PLATELET COUNT (AUTO) 181 K/uL (130-430); RED BLOOD CELL COUNT(AUTO) 4.33 MIL/uL (4.2-6.2); RED CELL DISTRIBUTION WIDTH 12.4 % (9.0-15.0); WHITE BLOOD COUNT (AUTO) 6.2 K/uL (4.8-10.8)
[2023-03-27 08:56] LABS: ANION GAP 14 (5-15); CALCIUM 10.3 mg/dL (8.4-11.0); CARBON DIOXIDE 28 mmol/L (23-29); CHLORIDE 92 mmol/L (98-107); CREATININE 3.31 mg/dL (0.55-1.30); GFR AFRICAN AMERICAN 25 mL/min (>90); POTASSIUM 4.2 mmol/L (3.5-5.1); SODIUM SERUM 134 mmol/L (136-145); UREA NITROGEN, BLOOD 47 mg/dL (8-21)
[2023-03-27 09:02] LABS: GFR NON AFRICAN-AMERICAN 20 mL/min (>90)
[2023-03-27 09:03] LABS: GLUCOSE 473 mg/dL (74-106)
[2023-03-27] MEDS ORDERED: HYDROcodone/ACETAMIN 5-325 MG TAB (NORCO/ VICODIN) PO PRN (10:00)
[2023-03-27] MEDS ORDERED: MORPHINE 2 MG/ML INJ. SYRINGE IVP PRN (10:00)
[2023-03-27] MEDS ORDERED: LABETALOL HCL 20 MG/4 ML CARTRIDGE IVP ONE (10:00)
[2023-03-27] MEDS ORDERED: ONDANSETRON HCL 4 MG/2 ML VIAL IVP PRN (10:00)
[2023-03-27] MEDS ORDERED: ACETAMINOPHEN 325 MG TABLET PO PRN ×2 (10:00→10:15)
[2023-03-27] MEDS ORDERED: LORazepam 2 MG/ML VIAL IVP PRN (10:00)
[2023-03-27] MEDS: HYDROcodone/ACETAMIN 10-325 MG TAB PO PRN (10:14)
[2023-03-27] MEDS ORDERED: INSULIN REGULAR, HUMAN 10 UNITS/0.1 ML, 3 ML VIAL IVP ONE (10:15)
[2023-03-27] MEDS ORDERED: DEXTROSE 50% JECT 50 ML DISP.SYRIN IVP PRN (10:30)
[2023-03-27] MEDS ORDERED: GLUCOSE (DEXTROSE) ORAL GEL -Adults PO PRN (10:30)
[2023-03-27] MEDS ORDERED: ATORVASTATIN 20 MG TABLET PO ONE (10:45)
[2023-03-27] MEDS ORDERED: CARVEDILOL 12.5 MG TABLET (COREG) PO ONE (10:45)
[2023-03-27] MEDS ORDERED: amLODIPine BESYLATE 10 MG TABLET PO ONE (10:45)
[2023-03-27] MEDS ORDERED: HEPARIN SODIUM,PORCINE 5,000 UNITS/ML VIAL IV ONE (11:45)
[2023-03-27] MEDS ORDERED: HEPARIN SODIUM,PORCINE 2000 UNITS/0.4 ML BOLUS IVP PRN (11:45)
[2023-03-27] MEDS ORDERED: HEPARIN SODIUM,PORCINE 3000 UNITS/0.6 ML BOLUS IVP PRN (11:45)
[2023-03-27] MEDS: INSULIN REGULAR, HUMAN 100 UNITS/ML, 3 ML VIAL (humuLIN R) SUBCUT PRN (12:05)
[2023-03-27] MEDS ORDERED: INSULIN GLARGINE 100 UNITS/ML, 10 ML VIAL SUBCUT ONE (13:15)
[2023-03-27] MEDS ORDERED: hydrALAZINE HCL 25 MG TABLET PO ONE (16:00)
[2023-03-27] MEDS: CALCIUM CARBONATE 500 MG/ TAB.CHEW PO SCH ×2 (16:46→21:00)
[2023-03-27 18:33] LABS: ALBUMIN 3.2 g/dL (3.4-4.8); CALCIUM 8.3 mg/dL (8.4-11.0); CREATININE 2.72 mg/dL (0.55-1.30); POTASSIUM 3.6 mmol/L (3.5-5.1); TOTAL BILIRUBIN 0.4 mg/dL (0.0-1.0); TOTAL PROTEIN, SERUM 6.1 g/dL (6.4-8.3)
[2023-03-27] MEDS: hydrALAZINE HCL 25 MG TABLET PO SCH (21:00)
[2023-03-27] MEDS: INSULIN GLARGINE 100 UNITS/ML, 10 ML VIAL SUBCUT SCH (21:00)
[2023-03-27] MEDS: CARVEDILOL 12.5 MG TABLET (COREG) PO SCH ×2 (21:00→22:58)
[2023-03-27] MEDS: PANTOPRAZOLE SODIUM 40 MG TAB PO SCH (21:30)
[2023-03-27] MEDS ORDERED: INSULIN GLARGINE 100 UNITS/ML, 10 ML VIAL SUBCUT SCH (22:45)
[2023-03-28] MEDS ORDERED: cloNIDine HCL 0.2 MG TABLET PO PRN (00:15)
[2023-03-28] MEDS ORDERED: hydrALAZINE HCL 20 MG/ML VIAL IVP PRN (00:15)
[2023-03-28] MEDS ORDERED: INSULIN REGULAR, HUMAN 10 UNITS/0.1 ML, 3 ML VIAL ONE (04:16)
[2023-03-28] MEDS: INSULIN REGULAR, HUMAN 100 UNITS/ML, 3 ML VIAL (humuLIN R) SUBCUT PRN ×4 (04:22→21:13)
[2023-03-28 08:00] LABS: BASOPHILS % (AUTO) 0.7 % (0.0-2.0); EOSINOPHILS # (AUTO) 0.2 K/uL (0.0-0.4); EOSINOPHILS % (AUTO) 3.9 % (0.0-4.0); HEMATOCRIT 40.7 % (36-54); HEMOGLOBIN 13.9 g/dL (14.0-18.0); LYMPHOCYTES # (AUTO) 1.3 K/uL (1.0-5.5); LYMPHOCYTES % (AUTO) 20.3 % (20.5-51.5); MEAN CORPUSCULAR HEMOGLOBIN 33 pg (27-31); MEAN CORPUSCULAR HGB CONC 34 % (32-36); MEAN CORPUSCULAR VOLUME 97 fL (79.0-98.0); MONOCYTES # (AUTO) 0.4 K/uL (0.0-1.0); MONOCYTES % (AUTO) 6.2 % (1.7-9.3); NEUTROPHILS # (AUTO) 4.3 K/uL (1.8-7.7); NEUTROPHILS % (AUTO) 68.9 % (40.0-70.0); PLATELET COUNT (AUTO) 170 K/uL (130-430); RED BLOOD CELL COUNT(AUTO) 4.18 MIL/uL (4.2-6.2); WHITE BLOOD COUNT (AUTO) 6.2 K/uL (4.8-10.8)
[2023-03-28 08:23] LABS: ALBUMIN 2.9 g/dL (3.4-4.8); CALCIUM 8.5 mg/dL (8.4-11.0); CREATININE 2.46 mg/dL (0.55-1.30); POTASSIUM 4.4 mmol/L (3.5-5.1); THYROID STIMULATING HORMONE 0.87 uIu/mL (0.34-4.82); TOTAL BILIRUBIN 0.3 mg/dL (0.0-1.0); TOTAL PROTEIN, SERUM 5.5 g/dL (6.4-8.3)
[2023-03-28 08:30] VITALS: BP_SYST 161; PULSE 80; RESP 18; TEMP 97.7; O2SAT 99
[2023-03-28] MEDS: PANTOPRAZOLE SODIUM 40 MG TAB PO SCH ×2 (09:41→20:14)
[2023-03-28] MEDS: ATORVASTATIN 20 MG TABLET PO SCH (09:41)
[2023-03-28] MEDS: amLODIPine BESYLATE 10 MG TABLET PO SCH (09:42)
[2023-03-28] MEDS: CARVEDILOL 12.5 MG TABLET (COREG) PO SCH ×2 (09:42→20:14)
[2023-03-28] MEDS: ASPIRIN 81 MG TAB.CHEW PO SCH (09:42)
[2023-03-28] MEDS: hydrALAZINE HCL 25 MG TABLET PO SCH ×2 (09:43→20:21)
[2023-03-28] MEDS: CALCIUM CARBONATE 500 MG/ TAB.CHEW PO SCH ×4 (09:43→20:14)
[2023-03-28 12:00] VITALS: BP_SYST 132; PULSE 81; RESP 18; TEMP 98; O2SAT 98
[2023-03-28] MEDS ORDERED: INSULIN GLARGINE 100 UNITS/ML, 10 ML VIAL SUBCUT ONE (12:30)
[2023-03-28] MEDS ORDERED: HEPARIN SODIUM,PORCINE 5,000 UNITS/ML VIAL IV ONE (13:00)
[2023-03-28] MEDS: HEPARIN 25,000 UNITS/D5W 250ML 250 ML IV SCH ×2 (13:10→22:02)
[2023-03-28 16:00] VITALS: BP_SYST 140; PULSE 75; RESP 20; TEMP 97.7; O2SAT 99
[2023-03-28 19:40] VITALS: BP_SYST 144; PULSE 74; RESP 18; TEMP 98.6; O2SAT 96
[2023-03-28] MEDS: HYDROcodone/ACETAMIN 10-325 MG TAB PO PRN (20:12)
[2023-03-28] MEDS: INSULIN GLARGINE 100 UNITS/ML, 10 ML VIAL SUBCUT SCH (21:08)
[2023-03-29 01:20] VITALS: BP_SYST 134; PULSE 67; RESP 18; TEMP 98.5; O2SAT 98
[2023-03-29 06:51] LABS: BASOPHILS # (AUTO) 0.1 K/uL (0.0-0.2); BASOPHILS % (AUTO) 0.9 % (0.0-2.0); EOSINOPHILS # (AUTO) 0.3 K/uL (0.0-0.4); EOSINOPHILS % (AUTO) 4.6 % (0.0-4.0); HEMATOCRIT 37.9 % (36-54); LYMPHOCYTES # (AUTO) 2.4 K/uL (1.0-5.5); LYMPHOCYTES % (AUTO) 34.4 % (20.5-51.5); MEAN CORPUSCULAR HEMOGLOBIN 33 pg (27-31); MEAN CORPUSCULAR HGB CONC 34 % (32-36); MEAN CORPUSCULAR VOLUME 97 fL (79.0-98.0); MONOCYTES # (AUTO) 0.5 K/uL (0.0-1.0); MONOCYTES % (AUTO) 6.6 % (1.7-9.3); NEUTROPHILS # (AUTO) 3.8 K/uL (1.8-7.7); NEUTROPHILS % (AUTO) 53.5 % (40.0-70.0); PLATELET COUNT (AUTO) 166 K/uL (130-430); RED BLOOD CELL COUNT(AUTO) 3.92 MIL/uL (4.2-6.2); RED CELL DISTRIBUTION WIDTH 12.2 % (9.0-15.0)
[2023-03-29 07:17] LABS: ALBUMIN 2.8 g/dL (3.4-4.8); CALCIUM 8.8 mg/dL (8.4-11.0); CREATININE 2.19 mg/dL (0.55-1.30); POTASSIUM 3.7 mmol/L (3.5-5.1); TOTAL BILIRUBIN 0.3 mg/dL (0.0-1.0); TOTAL PROTEIN, SERUM 5.5 g/dL (6.4-8.3)
[2023-03-29 08:00] VITALS: PULSE 85; RESP 18; TEMP 98; O2SAT 99
[2023-03-29] MEDS: ASPIRIN 81 MG TAB.CHEW PO SCH (08:06)
[2023-03-29] MEDS: CARVEDILOL 12.5 MG TABLET (COREG) PO SCH (08:06)
[2023-03-29] MEDS: PANTOPRAZOLE SODIUM 40 MG TAB PO SCH (08:07)
[2023-03-29] MEDS: ATORVASTATIN 20 MG TABLET PO SCH (08:07)
[2023-03-29] MEDS: HYDROcodone/ACETAMIN 10-325 MG TAB PO PRN (08:07)
[2023-03-29] MEDS: hydrALAZINE HCL 25 MG TABLET PO SCH (08:08)
[2023-03-29] MEDS: amLODIPine BESYLATE 10 MG TABLET PO SCH (08:09)
[2023-03-29] MEDS: CALCIUM CARBONATE 500 MG/ TAB.CHEW PO SCH ×2 (08:30→12:30)
[2023-03-29 11:33] VITALS: BP_SYST 135; PULSE 74; RESP 16; TEMP 96.5; O2SAT 99
[2023-03-29] MEDS: INSULIN REGULAR, HUMAN 100 UNITS/ML, 3 ML VIAL (humuLIN R) SUBCUT PRN (12:13)
[2023-03-29] MEDS ORDERED: NOR10 PO (12:23)
[2023-03-29] MEDS ORDERED: LIP20 PO (12:23)
[2023-03-29] MEDS ORDERED: ASA81 PO (12:23)
[2023-03-29] MEDS ORDERED: PRO40 PO (12:23)
[2023-03-29] MEDS ORDERED: COR12.5 PO (12:24)
[2023-03-29 13:32] VITALS: BP_SYST 140; PULSE 80; RESP 20; TEMP 98; O2SAT 99
== END 2023-03-29 14:35 | disposition home or self-care (01) | DRG 281 ==
LOC: SED 07:32 → STU 10:00
PROVIDERS: ADMIT Family Medicine; ATTEND Family Medicine
DX: I21.4 Non-ST elevation (NSTEMI) myocardial infarction (principal); E87.1 Hypo-osmolality and hyponatremia; I16.1 Hypertensive emergency; N17.9 Acute kidney failure, unspecified; N18.4 Chronic kidney disease, stage 4 (severe); E11.22 Type 2 diabetes mellitus with diabetic chronic kidney disease; I12.9 Hypertensive chronic kidney disease with stage 1 through stage 4 chronic kidney disease, or unspecified chronic kidney disease; E11.65 Type 2 diabetes mellitus with hyperglycemia; E78.5 Hyperlipidemia, unspecified; R74.01 Elevation of levels of liver transaminase levels; E78.1 Pure hyperglyceridemia; R07.89 Other chest pain; Z79.4 Long term (current) use of insulin; Z79.899 Other long term (current) drug therapy; Z87.891 Personal history of nicotine dependence; Z90.49 Acquired absence of other specified parts of digestive tract; Z91.148 Patient's other noncompliance with medication regimen for other reason
CPT/HCPCS: 36415; 71045; 80048; 80053; 80061; 82962; 83037; 83735; 83880; 84443; 84484; 85025; 85730-TC; 93005; 93306; 99291; G0378; J1644; J1815; J2405

== ENCOUNTER 2023-08-29 16:25 | Emergency (ER) | payer BC ==
[~2023-08-29] VITALS: Ht 188 cm; Wt 104.3 kg
[~2023-08-29 16:25] MED LIST changes: +ASA81 PO; +COR12.5 PO; +LIP20 PO; +NOR10 PO; +PRO40 PO
[2023-08-29 16:54] VITALS: BP_SYST 212; PULSE 120; RESP 17; TEMP 98.6; O2SAT 100
[2023-08-29] MEDS: LORazepam 2 MG/ML VIAL IVP ONE (19:09)
[2023-08-29 19:11] LABS: BASOPHILS # (AUTO) 0.1 K/uL (0.0-0.2); BASOPHILS % (AUTO) 0.7 % (0.0-2.0); EOSINOPHILS # (AUTO) 0.1 K/uL (0.0-0.4); HEMATOCRIT 45.5 % (36-54); HEMOGLOBIN 15.5 g/dL (14.0-18.0); LYMPHOCYTES # (AUTO) 3.2 K/uL (1.0-5.5); LYMPHOCYTES % (AUTO) 25.2 % (20.5-51.5); MEAN CORPUSCULAR HEMOGLOBIN 32 pg (27-31); MEAN CORPUSCULAR HGB CONC 34 % (32-36); MEAN CORPUSCULAR VOLUME 93 fL (79.0-98.0); MONOCYTES # (AUTO) 0.9 K/uL (0.0-1.0); MONOCYTES % (AUTO) 7.1 % (1.7-9.3); NEUTROPHILS # (AUTO) 8.3 K/uL (1.8-7.7); PLATELET COUNT (AUTO) 243 K/uL (130-430); RED BLOOD CELL COUNT(AUTO) 4.89 MIL/uL (4.2-6.2); WHITE BLOOD COUNT (AUTO) 12.5 K/uL (4.8-10.8)
[2023-08-29 19:27] LABS: ALANINE AMINOTRANSFERASE 72 U/L (12-78); ALBUMIN 4.4 g/dL (3.4-4.8); ASPARTATE AMINOTRANSFERASE 45 U/L (10-37); BILIRUBIN,DIRECT 0.2 mg/dL (0.0-0.3); CALCIUM 9.8 mg/dL (8.4-11.0); CREATINE KINASE, TOTAL 233 U/L (39-308); CREATININE 2.78 mg/dL (0.55-1.30); GFR AFRICAN AMERICAN 30 mL/min (>90); GLUCOSE 191 mg/dL (74-106); SALICYLATE 1 mg/dL (3-30); TOTAL BILIRUBIN 0.8 mg/dL (0.0-1.0); UREA NITROGEN, BLOOD 41 mg/dL (8-21)
[2023-08-29 19:28] LABS: ACETAMINOPHEN < 1 ug/mL (1-30); ALCOHOL, BLOOD < 3 mg/dL (<10); GFR NON AFRICAN-AMERICAN 25 mL/min (>90)
[2023-08-29 19:32] LABS: ANION GAP 16 (5-15); CARBON DIOXIDE 22 mmol/L (23-29); CHLORIDE 102 mmol/L (98-107); POTASSIUM 3.9 mmol/L (3.5-5.1); SODIUM SERUM 140 mmol/L (136-145)
[2023-08-29] MEDS: KETAMINE HCL 500 MG/10 ML VIAL IM ONE (19:45)
[2023-08-29 20:26] LABS: BARBITURATE, URINE NEGATIVE (NEG <=200); BENZODIAZEPINE, URINE NEGATIVE (NEG <=150); CANNABINOID, URINE NEGATIVE (NEG <=50); COCAINE, URINE NEGATIVE (NEG <=150); METHAMPHETAMINES SCREEN,URINE POSITIVE (NEG <=500); OPIATE, URINE NEGATIVE (NEG <=100); PHENCYCLIDINE SCREEN,URINE NEGATIVE (NEG <=25); UR TRICYCLIC ANTIDEPRESSANTS NEGATIVE (NEG <=300); URINE AMPHETAMINE POSITIVE (NEG <=500); URINE METHADONE NEGATIVE (NEG <=200); URINE OXYCODONE SCREEN NEGATIVE (NEG <=100)
[2023-08-29] MEDS: NACL 0.9% 2,000 ML IV ONE (20:55)
[2023-08-30] MEDS: LABETALOL HCL 20 MG/4 ML CARTRIDGE IVP ONE (04:47)
[2023-08-30] MEDS: hydrALAZINE HCL 20 MG/ML VIAL IVP ONE ×2 (05:27→08:29)
[2023-08-30] MEDS: cloNIDine HCL 0.1 MG TABLET PO ONE (08:29)
[2023-08-30 08:51] VITALS: BP_SYST 154; PULSE 70; RESP 18; TEMP 97.9; O2SAT 98
== END 2023-08-30 08:50 | disposition short-term general hospital (02) ==
LOC: SED 16:25
DX: F29 Unspecified psychosis not due to a substance or known physiological condition (principal); I10 Essential (primary) hypertension; E11.9 Type 2 diabetes mellitus without complications; Z79.899 Other long term (current) drug therapy; Z79.2 Long term (current) use of antibiotics
CPT/HCPCS: 99285; 96374; 96361; 80307; 80076; 80048; 82550; 85025; 36415; 82948; 99152; 96375; 96376; G0482; J2060; J7030; J0360; G0480; G0481